=== PATIENT | female | born 1970 | race African-American/Black ===

== ENCOUNTER 2016-11-12 09:13 | Inpatient (IN) | payer OTHER ==
[~2016-11-12] VITALS: Ht 167.6 cm; Wt 95.3 kg
--- NOTE | ~2016-11-12 | EKG ---
[address] [place] [place] [address] ELECTROCARDIOGRAM REPORT Name: AUGUSTUSLEORA REJI Room #: 441-P ADM IN M.R.#: [id number] Admission: 11/12/16 Attend Phys: Sebastian Alvarado DO Discharge: Date of : 68 Report #: [id number] THIS REPORT FOR: //name// [facility] ED Test Date: 2016-11-12 Test Time: 09:19:10 Pat Name: LEORA COFFMAN Department: Room: [facility] Gender: F [employer]amin[employer] Supervisor: MZMARC : [id number] Requested By: Venkat Ambrocio Order Number: [id number] MD: Tony Martinez Measurements Intervals [place] Rate: 91 P: 38 SD: 144 QRS: 24 QRSD: 105 T: 14 QT: 398 QTc: 490 Interpretive Statements Sinus rhythm Probable left atrial enlargement Left ventricular hypertrophy ST elev, probable normal early repol pattern Electronically Signed On 11-12-2016 14:21:32 CDT by Tony Martinez [email or web address] <ELECTRONICALLY SIGNED> By: Tony Martinez MD 11/12/16 1421 8 8 Tony Martinez MD /ISHAAN
--- NOTE | ~2016-11-12 | 2DMMODE ---
[facility] [address] [address] 2 D/M-MODE ECHOCARDIOGRAM Name: NIDA COFFMANNDRoyer MENDOZA Room #: 441-P ADM IN M.R.#: [id number] Admission: 11/12/16 Attend Phys: Sebastian Alvarado, Discharge: Date of : 68 Date of Service: 11/13/16 1007 Report #: [id number] THIS REPORT FOR: //name// APPROVED REPORT Study performed: 11/13/2016 08:48:39 EXAM: Comprehensive 2D, Doppler, and color-flow Echocardiogram Patient Location: Echo lab Room #: [facility] Blood Pressure: 118/68 mmHg HR: 67 bpm Other Information Study Quality: Good Indications Congestive Heart Failure Dyspnea Chest Pain Hypertension/HDD 2D Dimensions RVDd: 43.95 mm LVEF(%): 53.47 (>50%) IVSd: 15.51 (7-11mm) LVOT Diam: 25.60 (18-24mm) LVDd: 50.91 mm PWd: 16.11 (7-11mm) Ascending Ao: 26.87 (22-36mm) LVDs: 36.80 (25-40mm) Aortic Root: 30.04 mm IVC: 26.00 mm Mares's LVEF: 53.47 % Volumes Left Atrial Volume (Systole) Single Plane 4CH: 79.15 mL Single Plane 2CH: 74.44 mL LA ESV Index: 41.00 mL/m2 Aortic Valve AoV Peak Kevin.: 1.84 m/s AO Peak Gr.: 13.59 mmHg LVOT Max P.13 mmHg LVOT Max V: 1.24 m/s EVANS Vmax: 3.46 cm2 [facility] [address] [address] 2 D/M-MODE ECHOCARDIOGRAM Name: LEORA COFFMAN Room #: 441-P [facility] IN ..#: [id number] Admission: 11/12/16 Attend Phys: Sebastian Alvarado, Discharge: Date of : 68 Date of Service: 11/13/16 1007 Report #: [id number] Mitral Valve E/A Ratio: 1.3 MV Decel. Time: 249.81 ms MV E Max Kevin.: 0.72 m/s MV A Kevin.: 0.55 m/s MV PHT: 72.45 ms IVRT: 133.79 ms Pulmonary Valve PV Peak Kevin.: 1.20 m/s PV Peak Gr.: 5.74 mmHg Pulmonary Vein P Vein S: 41.8 m/s P Vein A: 20.64 m/s P Vein D: 37.2 m/s P Vein A Dur.: 92.3 msec Tricuspid Valve RAP Estimate: 10.00 mmHg Left Ventricle The left ventricle is normal size. There is normal LV segmental wall motion. Moderate concentric left ventricular hypertrophy. The left ventricular systolic function is normal. The left ventricular ejection fraction is within the normal range. LVEF is 60-65%. Grade II - pseudonormal filling dynamics. Right Ventricle The right ventricle is normal size. The right ventricular systolic function is normal. Atria Left atrium is moderately dilated. The right atrium size is normal. Aortic Valve The aortic valve is normal in structure. Trace aortic regurgitation. There is no aortic valvular stenosis. Mitral Valve The mitral valve is normal in structure. Mild mitral regurgitation. No evidence of mitral valve stenosis. Tricuspid Valve The tricuspid valve is normal in structure. There is no tricuspid valve regurgitation noted. Pulmonic Valve [facility] [address] [place] [address] 2 D/M-MODE ECHOCARDIOGRAM Name: LEORA COFFMAN Room #: 441-P [facility] IN M.R.#: [id number] Admission: 11/12/16 Attend Phys: Sebastian Alvarado, Discharge: Date of : 68 Date of Service: 11/13/16 1007 Report #: [id number] The pulmonary valve is normal in structure. There is no pulmonic valvular regurgitation. Great Vessels The aortic root is normal in size. IVC is dilated and collapses >50% with inspiration. Pericardium There is no pericardial effusion. <Conclusion> The left ventricle is normal size. Moderate concentric left ventricular hypertrophy. The left ventricular systolic function is normal. Grade II - pseudonormal filling dynamics. The right ventricle is normal size. Left atrium is moderately dilated. Trace aortic regurgitation. Mild mitral regurgitation. There is no pericardial effusion. <ELECTRONICALLY SIGNED> By: Landon Nguyen MD 11/13/16 1007 1007 1007 Landon Nguyen MD /INF
[2016-11-12 09:16] VITALS: BP 238/140
[2016-11-12] MEDS ORDERED: ACCUNEB SO1.25 MG/1 INH (09:18)
[2016-11-12] MEDS ORDERED: IRON325 PO (09:18)
[2016-11-12] MEDS ORDERED: LISINOPRIL20 MG PO (09:18)
[2016-11-12] MEDS ORDERED: ADVAIR HFA115 MCG/21 INH (09:18)
[2016-11-12 09:37] LABS: EOSINOPHILS 0.4 % (0.0-3.0); HEMATOCRIT 31.2 % (37.0-47.0); HEMOGLOBIN 9.9 gm/dL (12.0-15.0); LYMPHOCYTES 11.4 % (24.0-44.0); MCH 23.1 pg (26.0-34.0); MCHC 31.7 g/dL (28.0-37.0); MONOCYTES 6.9 % (1.0-8.0); PLATELET COUNT 359 thou/uL (150-400); POLYS 80.3 % (36.0-66.0); RBC 4.27 mil/uL (4.20-5.00); RDW 16.9 % (10.5-14.5); WBC 8.7 thou/uL (4.0-11.0)
[2016-11-12 09:39] LABS: MANUAL DIFF NO
[2016-11-12 09:48] LABS: ANION GAP 10 mmol/L (7-16); BUN 17 mg/dL (7-18); CALCIUM 8.7 mg/dL (8.5-10.1); CHLORIDE 106 mmol/L (98-107); CO2 21 mmol/L (21-32); GLUCOSE 100 mg/dL (74-106); POTASSIUM 3.9 mmol/L (3.5-5.1); SODIUM 137 mmol/L (136-145)
[2016-11-12 10:00] LABS: ALBUMIN 3.3 g/dL (3.4-5.0); ALKALINE PHOSPHATASE 58 U/L (46-116); NT-PRO BRAIN NAT PEPTIDE 4468 pg/mL (<300); SGOT 15 U/L (15-37); SGPT 12 U/L (30-65); TOTAL BILIRUBIN 0.4 mg/dL (<0.1-1.0); TROPONIN-I < 0.04 ng/mL (<0.04-0.07)
[2016-11-12 10:13] LABS: PROTIME 10.7 Seconds (9.3-11.4)
[2016-11-12 12:47] VITALS: BP 147/88
[2016-11-12 13:30] VITALS: BP 178/111
[2016-11-12 18:54] VITALS: BP 127/66
[2016-11-12 23:45] VITALS: BP 130/84
[2016-11-13 03:44] VITALS: BP 118/68
[2016-11-13 04:41] LABS: ABSOLUTE NEUTROPHILS 4.5 thou/uL (1.4-8.2); BASOPHILS 0.9 % (0.0-2.0); EOSINOPHILS 1.8 % (0.0-3.0); HEMATOCRIT 31.3 % (37.0-47.0); HEMOGLOBIN 9.8 gm/dL (12.0-15.0); LYMPHOCYTES 27.9 % (24.0-44.0); MCH 22.9 pg (26.0-34.0); MCHC 31.4 g/dL (28.0-37.0); MCV 73.1 fL (80.0-100.0); MONOCYTES 5.8 % (1.0-8.0); PLATELET COUNT 399 thou/uL (150-400); POLYS 63.6 % (36.0-66.0); RBC 4.28 mil/uL (4.20-5.00); RDW 17.1 % (10.5-14.5); WBC 7.1 thou/uL (4.0-11.0)
[2016-11-13 04:46] LABS: MANUAL DIFF NO
[2016-11-13 04:53] LABS: CALCIUM 8.5 mg/dL (8.5-10.1); CREATININE 1.3 mg/dL (0.6-1.0); POTASSIUM 3.7 mmol/L (3.5-5.1)
[2016-11-13 07:44] LABS: ANISOCYTOSIS 1+; HYPOCHROMASIA 1+; MICROCYTES 1+
[2016-11-13 08:00] VITALS: BP 120/74
[2016-11-13] MEDS ORDERED: BYSTOLIC 5 MG5 M1 PO (11:22)
[2016-11-13] MEDS ORDERED: ALTACE10 MG PO (11:24)
[2016-11-13 12:12] VITALS: BP 128/70
[2016-11-13 13:21] VITALS: BP 128/70
== END 2016-11-13 14:43 | disposition home or self-care (01) | DRG 293 ==
LOC: ER 09:13 → 4S 11:59 → EROBS 11:59 → 4S 12:48
PROVIDERS: Internal Medicine Geriatric Medicine; Physician Assistant
DX: I11.0 Hypertensive heart disease with heart failure (principal); J45.909 Unspecified asthma, uncomplicated; I50.9 Heart failure, unspecified; R07.9 Chest pain, unspecified; Z79.899 Other long term (current) drug therapy
CPT/HCPCS: 10100